=== PATIENT | female | born 1980 | race Caucasian/White ===

== ENCOUNTER → 2017-01-13 | Outpatient (CLI) | payer BC ==
--- NOTE | 2017-01-13 09:39 | RAD ---
DATE: 01/13/2017 EXAM: MAMMO TEVIN SCREENING BILATERAL HISTORY: Routine screening COMPARISON: 05/08/2015 This study was interpreted with the benefit of Computerized Aided Detection (CAD). FINDINGS: 2-D and 3-D tomosynthesis imaging was performed in CC and MLO projections. The breasts are heterogeneously dense. There is a smooth oval-shaped 8 mm nodule in the right breast located posteroinferiorly at the 6:00 location. It lies superficially and could conceivably be related to the skin. A similar small smooth 9 mm nodule is seen inferolaterally in the left breast. Both of these nodules are only clearly seen on the tomograms due to overlying dense breast tissues. Therefore they may or may not have been present on the previous 2D study, again obscured by overlying dense fibroglandular tissues. No other unusual breast densities are seen. Benign type calcification is noted. No suspicious microcalcifications are evident. IMPRESSION: Single small smooth nodules in both breasts as described above. Sonographic evaluation is suggested. BI-RADS CATEGORY: 0 INCOMPLETE: NEEDS ADDITIONAL IMAGING EVALUATION AND/OR PRIOR MAMMOGRAMS FOR COMPARISON. RECOMMENDED FOLLOW-UP: ADD ADDITIONAL IMAGING PQRS compliance statement: Patient information was entered into a reminder system with a target due date for the next mammogram. Mammography is a sensitive method for finding small breast cancers, but it does not detect them all and is not a substitute for careful clinical examination. A negative mammogram does not negate a clinically suspicious finding and should not result in delay in biopsying a clinically suspicious abnormality. "Our facility is accredited by the [employer] Mammography Program."
== END | disposition home or self-care (01) ==
LOC: MAMMO 08:23
PROVIDERS: ATTEND Family Medicine
DX: Z12.31 Encounter for screening mammogram for malignant neoplasm of breast (principal)
CPT/HCPCS: 77063; G0202; 77067

== ENCOUNTER → 2017-01-18 | Outpatient (CLI) | payer BC ==
--- NOTE | 2017-01-18 11:45 | RAD ---
Right breast sonography Indications: Further evaluation of 6 clock nodule seen on screening mammogram dated January 13, 2017. Findings: High-resolution sonography of the right breast demonstrates an 8 mm lymph node which demonstrates normal lymph node sonographic architecture. This corresponds to the mammographic finding which also exhibited a central radiolucent cleft on the mammogram typical of a benign intramammary lymph node. IMPRESSION: Benign intramammary lymph node of the right breast. Recommend routine screening mammography in one year. Left breast sonography Indications: Further evaluation of nodule of the inferior lateral aspect of the left breast seen on screening mammogram dated January 13, 2017. Findings: High-resolution sonography of the left breast demonstrates 2 cysts adjacent to one another at the 4:00 position zone 1. The first cyst measures 9 mm in size and the second cyst measures 10 mm in size. Either one of these would correspond to the mammographic nodule. In addition, there is a benign-appearing intramammary lymph node at the 3 clock position 10 cm from the nipple measuring 8 mm in size. IMPRESSION: Benign cyst of the left breast corresponds to the mammographic finding. Recommend routine screening mammography in one year. BI-RADS Category 2 benign finding. Recommend routine screening mammography in one year. The patient information was entered into the data reminder system with a target due date for the next mammogram of January 14, 2018.
== END | disposition home or self-care (01) ==
LOC: US 09:38
PROVIDERS: ATTEND Family Medicine
DX: Z12.31 Encounter for screening mammogram for malignant neoplasm of breast (principal); N63 Unspecified lump in breast; N60.02 Solitary cyst of left breast
CPT/HCPCS: 76641

== ENCOUNTER 2018-10-14 04:59 | Emergency (ER) | payer BC ==
[~2018-10-14] VITALS: Ht 162.6 cm; Wt 66.0 kg
[2018-10-14 05:10] VITALS: BP 108/65
[2018-10-14] MEDS ORDERED: birth control pill (05:17)
[2018-10-14] MEDS ORDERED: [UNRECOGNIZED DRUG - REMARK] (05:17)
[2018-10-14] MEDS ORDERED: SULF1TAB24 PO (05:20)
--- NOTE | 2018-10-14 05:23 | PHYS DOC ---
Adult General Chief Complaint Chief Complaint laceration HPI HPI 38 years old female presented to the emergency department with laceration to the left upper side of the left, due to puppy dog bite Review of Systems Review of Systems Constitutional: Denies fever or chills [] Eyes: Denies change in visual acuity, redness, or eye pain [] HENT: Denies nasal congestion or sore throat [] Respiratory: Denies cough or shortness of breath [] Cardiovascular: No additional information not addressed in HPI [] GI: Denies abdominal pain, nausea, vomiting, bloody stools or diarrhea [] : Denies dysuria or hematuria [] Musculoskeletal: Denies back pain or joint pain [] Integument: Denies rash or skin lesions [] Neurologic: Denies headache, focal weakness or sensory changes [] Endocrine: Denies polyuria or polydipsia [] All other systems were reviewed and found to be within normal limits, except as documented in this note. Allergies Allergies Allergies Coded Allergies Type Severity Reaction Last Updated Verified No Known Drug Allergies 10/14/18 No Physical Exam Physical Exam Constitutional: Well developed, well nourished, no acute distress, non-toxic appearance. [] HENT: Normocephalic, atraumatic, bilateral external ears normal, oropharynx moist, no oral exudates, nose normal. [] Eyes: PERRLA, EOMI, conjunctiva normal, no discharge. [] Neck: Normal range of motion, no tenderness, supple, no stridor. [] Cardiovascular:Heart rate regular rhythm, no murmur [] Lungs & Thorax: Bilateral breath sounds clear to auscultation [] Abdomen: Bowel sounds normal, soft, no tenderness, no masses, no pulsatile masses. [] Skin: 0.5 cm laceration in the upper lip Back: No tenderness, no CVA tenderness. [] Extremities: No tenderness, no cyanosis, no clubbing, ROM intact, no edema. [] Neurologic: Alert and oriented X 3, normal motor function, normal sensory function, no focal deficits noted. [] Psychologic: Affect normal, judgement normal, mood normal. [] EKG EKG [] Radiology/Procedures Radiology/Procedures [] Course & Med Decision Making Course & Med Decision Making Wound and irrigated with normal saline, routine prep, patient requested skin adhesive wound was closed with skin adhesive [] Final Impression Final Impression [] Problems: (1) Facial laceration Qualifiers: Qualified Codes: S01.81XA - Laceration without foreign body of other part of head, initial encounter Dragon Disclaimer Dragon Disclaimer This electronic medical record was generated, in whole or in part, using a voice recognition dictation system. NEHAL MAY MD Oct 14, 2018 05:23
== END 2018-10-14 05:39 | disposition home or self-care (01) ==
LOC: ER 04:59
DX: S01.511A Laceration without foreign body of lip, initial encounter (principal); W54.0XXA Bitten by dog, initial encounter; Y93.89 Activity, other specified; Y92.89 Other specified places as the place of occurrence of the external cause; Y99.8 Other external cause status
CPT/HCPCS: 12011; 99283

== ENCOUNTER → 2018-10-19 | Outpatient (CLI) | payer BC ==
[2018-10-14 05:10] VITALS: BP 108/65
[~2018-10-19] MED LIST: IOHEXOL 240 MG/ML 50ML VIAL. ONE; IOHEXOL 300 MG/ML 75 ML VIAL. IV ONE; SULF1TAB24 PO; [UNRECOGNIZED DRUG - REMARK]; birth control pill
--- NOTE | 2018-10-19 11:32 | RAD ---
EXAM: Right ribs, 2 views; thoracic spine, 3 views. HISTORY: Pain. COMPARISON: None. FINDINGS: 2 views of the right ribs and 2 views of the thoracic spine are obtained. No displaced fracture is seen. There is no lytic or sclerotic osseous lesion. The visualized portions the lungs are clear. The heart is normal in size. There is no pneumothorax or pleural effusion. There is no thoracic listhesis. The vertebral bodies are normal in height and the disc spaces are preserved. IMPRESSION: No acute osseous finding. Electronically signed by: María Schultz MD (10/19/2018 11:28 AM) [place] [id number]
--- NOTE | 2018-10-19 12:45 | RAD ---
CT chest and abdomen with contrast Indication: Chest and abdominal pain and pressure for one month Technique: Postcontrast CT imaging was performed of the chest and abdomen, multiplanar reconstruction images submitted. Oral contrast was also given. One or more of the following individualized dose reduction techniques were utilized for this examination: 1. Automated exposure control 2. Adjustment of the mA and/or kV according to patient size 3. Use of iterative reconstruction technique. Comparison: 11/24/2012 abdomen pelvis exam, no previous chest CT available CHEST: FINDINGS: There is very mild pleural thickening near the apices. There is tiny 2 mm subpleural nodule along the anterior right minor fissure axial image 37. Major airways are patent. There is no infiltrate, pleural or pericardial effusion, pneumothorax. Thoracic aortic caliber is within normal limits without intraluminal flap. There is pectus excavatum, some flattening of the AP dimension of the heart. Heart size is considered borderline. Impression: 1. There is no infiltrate or pleural fluid. There is degree of pectus excavatum with some flattening of the AP dimension of the heart. Heart size is considered borderline. Abdomen Findings: No focal abnormality is identified of the pancreas, liver, spleen, adrenal glands, gallbladder. Both kidneys enhance, no hydronephrosis. There is no free fluid or free air in the visualized abdomen, pelvis not imaged. Visualized bowel is not significantly dilated. There is retained stool in segments of the visualized colon. Appendix is not confidently identified, cecum not entirely included. IMPRESSION: 1. No acute abnormality is identified. Electronically signed by: Scooby Wheeler MD (10/19/2018 12:41 PM) [id number]
== END | disposition home or self-care (01) ==
LOC: CT 08:40
PROVIDERS: ATTEND Family Medicine
DX: R14.0 Abdominal distension (gaseous) (principal); R07.89 Other chest pain; R10.11 Right upper quadrant pain; R91.8 Other nonspecific abnormal finding of lung field
CPT/HCPCS: 71100; 71260; 72072; 74160; Q9966; Q9967

== ENCOUNTER → 2019-08-02 | Outpatient (CLI) | payer BC ==
[~2019-08-02] MED LIST changes: -IOHEXOL 240 MG/ML 50ML VIAL. ONE; -IOHEXOL 300 MG/ML 75 ML VIAL. IV ONE
--- NOTE | 2019-08-06 09:00 | RAD ---
DATE: 08/02/2019 9:25 AM EXAM: MAMMO TEVIN SCREENING BILATERAL HISTORY: Bilateral screening mammograms. COMPARISON: January 13, 2017 Bilateral CC and MLO views of the breasts were performed. Bilateral breast tomosynthesis was performed in CC and MLO projections. This study was interpreted with the benefit of Computerized Aided Detection (CAD). FINDINGS: Breast Density: HETERO The breast parenchyma Is heterogeneously dense, which could reduce sensitivity of mammography. Breast parenchyma level C No suspicious masses, microcalcifications or architectural distortion is present to suggest malignancy in either breast. The visualized axillae are unremarkable. IMPRESSION: No mammographic evidence of malignancy. BI-RADS CATEGORY: 1 NEGATIVE RECOMMENDED FOLLOW-UP: 12M 12 MONTH FOLLOW-UP Annual screening mammography is recommended, unless clinically indicated sooner based on symptoms or change in physical exam. PQRS compliance statement: Patient information was entered into a reminder system with a target due date one year for the next mammogram. Mammography is a sensitive method for finding small breast cancers, but it does not detect them all and is not a substitute for careful clinical examination. A negative mammogram does not negate a clinically suspicious finding and should not result in delay in biopsying a clinically suspicious abnormality. "Our facility is accredited by the [employer] Mammography Program."
== END | disposition home or self-care (01) ==
LOC: MAMMO 09:15
PROVIDERS: ATTEND Family Medicine
DX: Z12.31 Encounter for screening mammogram for malignant neoplasm of breast (principal)
CPT/HCPCS: 77063; 77067

== ENCOUNTER → 2020-10-07 | Outpatient (CLI) | payer BC ==
--- NOTE | 2020-10-08 08:37 | RAD ---
DATE: 10/07/2020 2:38 PM EXAM: MAMMO TEVIN SCREENING BILATERAL HISTORY: Screening COMPARISON: 08/02/2019 Bilateral CC, XCCL and MLO views of the breasts were performed. Bilateral breast tomosynthesis was performed in CC and MLO projections. This study was interpreted with the benefit of Computerized Aided Detection (CAD). FINDINGS: Breast Density: DENSE The breast Parenchyma is dense, which could reduce the sensitivity of mammography. Breast parenchyma level density D. No suspicious masses, microcalcifications or architectural distortion is present to suggest malignancy in either breast. The visualized axillae are unremarkable. IMPRESSION: No mammographic evidence of malignancy. BI-RADS CATEGORY: 1 NEGATIVE RECOMMENDED FOLLOW-UP: 12M 12 MONTH FOLLOW-UP Annual screening mammography is recommended, unless clinically indicated sooner based on symptoms or change in physical exam. PQRS compliance statement: Patient information was entered into a reminder system with a target due date for the next mammogram. Mammography is a sensitive method for finding small breast cancers, but it does not detect them all and is not a substitute for careful clinical examination. A negative mammogram does not negate a clinically suspicious finding and should not result in delay in biopsying a clinically suspicious abnormality. "Our facility is accredited by the [employer] Mammography Program."
== END ==
LOC: MAMMO 14:08
PROVIDERS: ATTEND Family Medicine
DX: Z12.31 Encounter for screening mammogram for malignant neoplasm of breast (principal)
CPT/HCPCS: 77063; 77067

== ENCOUNTER → 2021-10-11 | Outpatient (CLI) | payer BC ==
--- NOTE | 2021-10-11 12:22 | RAD ---
Bilateral digital screening 2-D and 3-D (tomosynthesis) mammogram: Reason for examination: Routine screening. The patient has a family history of breast carcinoma in he r mother and paternal grandmother. Comparison is made to previous study dated 10/07/2020 and 08/02/2019. Bilateral breast ultrasound fro m 01/18/2017. Bilateral mammograms in CC and oblique projections were obtained with 2-D imaging and 3-D tomosynthes is imaging and reviewed on the workstation. Interpretation was made with the benefit of CAD. Findings: Breast density: Category D. The breasts are extremely dense which lowers sensitivity of mammography. There are multiple bilateral small oval circumscribed masses. These are likely due to cysts. Bilatera l breast cysts were identified on previous ultrasound. There are no suspicious masses, malignant appe aring calcifications or architectural distortion. Impression: No evidence of malignancy. ASSESSMENT: BI-RADS 2. Benign findings. Recommendations: Routine screening mammograms. Risk assessment is recommended in this patient with family history of breast carcinoma. If clinically indicated, supplemental screening by MRI or bilateral whole breast ultrasound may be us eful in this patient with extremely dense breasts. This patient's information has been entered into a reminder system for the patient to be notified wit h the results of her examination and a target date for the next mammogram. Your patient's mammogram demonstrates that she has dense breast tissue (breast density category C or D), which could hide abnormalities, and if she has other risk factors for breast cancer that have bee n identified, she might benefit from supplemental screening tests that may be suggested by you as her ordering physician. Dense breast tissue, in and of itself, is a relatively common condition. Therefo re, this information is not provided to cause undue concern, but rather to raise your awareness and t o promote discussion with your patient regarding the presence of other risk factors, in addition to d ense breast tissue. Electronically signed by: Stefany Camacho MD (10/11/2021 12:20 PM) [id number]
== END ==
LOC: MAMMO 07:53
PROVIDERS: ATTEND Family Medicine
DX: Z12.31 Encounter for screening mammogram for malignant neoplasm of breast (principal)
CPT/HCPCS: 77063; 77067